=== PATIENT | female | born 1980 | race Hispanic/Latino ===

== ENCOUNTER 2021-04-04 19:49 | Emergency (ER) | payer SELFPAY ==
[~2021-04-04] VITALS: Ht 167.6 cm; Wt 109.8 kg
[2021-04-04] MEDS ORDERED: 0.9%NACL 1000ML 1,000 ML IV ONE (20:28)
[2021-04-04] MEDS ORDERED: CLINDAMYCIN IVPB 600MG/50ML 50 ML IV SCH (20:30)
[2021-04-04] MEDS ORDERED: HYDROCODONE/ACETAMINOPHEN 10/325 MG TAB PO ONE (20:30)
[2021-04-04] MEDS ORDERED: INSULIN HUMULIN R 100 UNIT/ML 3ML SQ ONE (20:30)
[2021-04-04 20:46] LABS: BASOPHILS % (AUTO) 0.3 % (0.0-5.0); HEMATOCRIT 43.2 % (36-48); LYMPHOCYTES % (AUTO) 24.5 % (21.0-51.0); MEAN CORPUSCULAR HEMOGLOBIN 26.5 pg (27.0-33.0); MEAN CORPUSCULAR HGB CONC 33.3 g/dL (32.0-36.0); MEAN CORPUSCULAR VOLUME 79.6 fL (79-99); MONOCYTES % (AUTO) 5.1 % (3.0-13.0); NEUTROPHILS % (AUTO) 68.4 % (40.0-77.0); PLATELET COUNT (AUTO) 260 K/uL (130-400); RED BLOOD CELL COUNT(AUTO) 5.43 MIL/uL (4.00-5.50); RED CELL DISTRIBUTION WIDTH 12.4 % (11.0-15.5); WHITE BLOOD COUNT (AUTO) 9.7 K/uL (4.8-10.8)
[2021-04-04 20:56] LABS: CREATININE 0.7 mg/dL (0.5-1.5); POTASSIUM 3.9 mmol/L (3.5-5.1)
[2021-04-04 21:00] LABS: ALBUMIN 3.6 g/dL (3.5-5.0); BILIRUBIN,TOTAL 0.3 mg/dL (0.2-1.0); TOTAL PROTEIN, SERUM 7.4 g/dL (6.0-8.3)
[2021-04-04] MEDS ORDERED: ACET-2247 PO (21:41)
[2021-04-04] MEDS ORDERED: CLIN-141 PO (21:41)
[2021-04-04 22:14] VITALS: BP 132/89
== END 2021-04-04 22:26 | disposition home or self-care (01) ==
LOC: EDH 19:49
DX: L02.411 Cutaneous abscess of right axilla (principal); E11.65 Type 2 diabetes mellitus with hyperglycemia; E66.9 Obesity, unspecified; Z68.39 Body mass index [BMI] 39.0-39.9, adult; Z79.4 Long term (current) use of insulin
CPT/HCPCS: 36415; 80053; 82948 ×2; 85025; 96365; 96372; 99284; J1815; J3490; J7030

== ENCOUNTER 2022-04-14 12:07 | Emergency (ER) | payer OTHER ==
[~2022-04-14] VITALS: Ht 170.2 cm; Wt 97.1 kg
[~2022-04-14 12:07] MED LIST: ACET-2247 PO; CLIN-141 PO
[2022-04-14 16:22] VITALS: BP 160/102
== END 2022-04-14 16:23 | disposition home or self-care (01) ==
LOC: EDH 12:07
DX: B34.9 Viral infection, unspecified (principal); Z20.822 Contact with and (suspected) exposure to COVID-19; E11.9 Type 2 diabetes mellitus without complications; E78.00 Pure hypercholesterolemia, unspecified; I10 Essential (primary) hypertension; Z98.890 Other specified postprocedural states
CPT/HCPCS: 99284; 71045; 87635; 87880; 87804 ×2; C9803; 87420

== ENCOUNTER 2024-12-13 09:21 | Emergency (ER) | payer BC ==
[~2024-12-13] VITALS: Ht 167.6 cm; Wt 101.6 kg
[2024-12-13 10:07] LABS: APPEARANCE,URINE CLOUDY (CLEAR); GLUCOSE, URINE (UA) >=1000 mg/dL (NEGATIVE); LEUKOCYTE ESTERASE ,URINE 500 Leu/uL (NEGATIVE); NITRATE,URINE NEGATIVE (NEGATIVE); OCCULT BLOOD,URINE NEGATIVE (NEGATIVE)
[2024-12-13 10:08] LABS: ADD UA MICROSCOPIC YES
[2024-12-13 10:11] LABS: NON-SQUAMOUS EPITHELIAL CELL 2 /HPF (0-2); SQUAMOUS EPITHELIAL CELL,UR MANY /HPF (0-2)
[2024-12-13 10:16] LABS: HCG,QUALITATIVE URINE NEGATIVE (NEGATIVE)
[2024-12-13 11:16] LABS: IMMATURE GRANULOCYTE ABSOLUTE 0.04 K/uL (0-1); NUCLEATED RED BLOOD CELLS 0.0 % (0.0-0.19); PLATELET COUNT (AUTO) 279 K/uL (130-400); RED BLOOD CELL COUNT(AUTO) 5.79 MIL/uL (4.00-5.50); RED CELL DISTRIBUTION WIDTH 12.3 % (11.0-15.5); WHITE BLOOD COUNT (AUTO) 8.8 K/uL (4.8-10.8)
[2024-12-13 11:41] LABS: ASPARTATE AMINOTRANSFERASE 11.0 U/L (10-37); CREATININE 0.6 mg/dL (0.5-1.0); GLOMERULAR FILTR. RATE CALC 114.0 mL/min (>90); GLUCOSE,RANDOM 282.0 mg/dL (70-105); TOTAL PROTEIN, SERUM 7.1 g/dL (6.0-8.3); UREA NITROGEN, BLOOD 17.0 mg/dL (7-18)
[2024-12-13 11:52] LABS: SODIUM SERUM 139.0 mmol/L (136-145)
--- NOTE | 2024-12-13 11:53 | ERN ---
General Chief Complaint: Abdominal Pain Stated Complaint: ABD PAIN Time Seen by MD: 10:10 Time Seen by Midlevel: 10:10 Source: patient History of Present Illness Initial Comments Patient is a 44-year-old female with a past medical history of type 2 diabetes, hyperlipidemia, and hypertension presenting to the emergency department for evaluation of diffuse abdominal pain with associated nausea started at a proximally 8:00 a.m. today. Allergies: Coded Allergies: No Known Drug Allergies (Unverified Allergy, Unknown, 04/04/21) Home Meds Active Scripts Cephalexin Monohydrate (Keflex) 500 Mg Cap, 500 MG PO TID for 7 Days, #21 CAP Prov:MEY ZAIDI DISABILITY MANAGER 8 Ondansetron (Ondansetron Odt) 4 Mg Tab.rapdis, 4 MG PO Q6HPRN PRN for nausea, #16 TAB 0 Refills Prov:MEY ZAIDI DISABILITY MANAGER 12/13/24 Dicyclomine HCl (Bentyl) 20 Mg Tab, 1 TAB PO TID for irritable bowel symptoms for 7 Days, #21 TAB 0 Refills Prov:MEY ZAIDI DISABILITY MANAGER 12/13/24 Acetaminophen (Tylenol) 325 Mg Tablet, 650 MG PO Q4HPRN, #50 TAB Prov:CATIA RAHMAN 04/04/21 Clindamycin HCl (Clindamycin HCl) 300 Mg Capsule, 1 CAP PO QID for 10 Days, #40 CAP 0 Refills Prov:CATIA RAHMAN 04/04/21 Past Medical History Past Medical History: Diabetes-Type II, High Cholesterol, Hypertension Past Surgical History: Cholecystectomy, Surgical History Other: OVARY REMOVED Social History Social History: Negative ROS Dictation CONSTITUTIONAL: Negative except for HPI HEAD/FACE: Negative except for HPI EENT: Negative except for HPI RESPIRATORY: Negative except for HPI GASTROINTESTINAL/ABDOMINAL: Negative except for HPI GENITOURINARY: Negative except for HPI MUSCULOSKELETAL: Negative except for HPI INTEGUMENTARY: Negative except for HPI NEUROLOGICAL/PSYCH: Negative except for HPI HEMATOLOGIC/LYMPHATIC: Negative except for HPI All Systems Negative, Except as noted above. 13 point review of systems assessed and all negative except for above. Physical Exam Physical Exam Dictation Vital Signs reviewed General Appearance: Alert, oriented x 3, no acute distress, well developed, nourished. Head and Face: non-traumatic. Eyes: PERRL, pink conjunctivas, eyelid no trauma, anterior chamber with arcus senilis. Ears: Pinnas intact and no signs of trauma or erythema ear canals clear and no discharge TM no erythema Nose: No discharge, no bleeding. Oropharynx: Mouth normal, tongue pink, pharynx clear,no erythema, tonsils no exudates, no abscesses noted, mucous membrane moist Neck: Supple, non-tender, no thyromegaly, no masses, no JVD, no bruits Breast:Deferred Chest:No tenderness, no crepitus, no paradoxical movement, no retractions Lungs:Clear, well-ventilated, symmetric, no rales, no wheezing, no rhonchi, no stridor, good breath sounds bilaterally Heart: Regular rate, regular rhythm, no murmur, no gallops Vascular: no peripheral edema, Abdomen: Soft, positive bowel sounds, nondistended, no guarding, nontender, no rebound, no masses no hepatomegaly, no splenomegaly, no Denson's sign, no hernias. Rectal: Deferred Genital: Deferred Neurological: Normal speech, motor function intact, sensory function intact Musculoskeletal: Neck nontender, full range of motion, back nontender, full range of motion, Extremities: nontender, full range of motion Skin: Color pink, dry, no turgor, no rash, no lacerations, no abrasions, no contusions. Lymphatic: Deferred Results Laboratory and Microbiology Lab and Micro Result Laboratory Tests Test 12/13/24 09:47 12/13/24 10:55 Urine Color YELLOW (YELLOW) Urine Appearance CLOUDY (CLEAR) H Urine pH 5.5 (5.0-8.0) Urine Specific [place] 1.028 (1.001-1.031) Urine Protein 10 mg/dL (NEGATIVE) H Urine Glucose (UA) >=1000 mg/dL (NEGATIVE) H Urine Ketones NEGATIVE mg/dL (NEGATIVE) Urine Occult Blood NEGATIVE (NEGATIVE) Urine Nitrate NEGATIVE (NEGATIVE) Urine Bilirubin NEGATIVE mg/dL (NEGATIVE) Urine Urobilinogen 0.2 mg/dL (0.2-1.0) Urine Leukocyte Esterase 500 Sally/uL (NEGATIVE) H Urine RBC 6-10 /HPF (0-1) H Urine WBC TNTC /HPF (0-1) H Urine Squamous Epithelial Cells MANY /HPF (0-2) Urine Non-Squamous Epithelial Cells 2 /HPF (0-2) Urine Bacteria FEW /HPF (None Seen) Urine HCG, Qualitative NEGATIVE (NEGATIVE) White Blood Count 8.8 K/uL (4.8-10.8) Red Blood Count 5.79 MIL/uL (4.00-5.50) H Hemoglobin 15.5 g/dL (12.0-16.0) Hematocrit 45.6 % (36-48) Mean Corpuscular Volume 78.8 fL (79-99) L Mean Corpuscular Hemoglobin 26.8 pg (27.0-33.0) L Mean Corpuscular Hemoglobin Concent 34.0 g/dL (32.0-36.0) Red Cell Distribution Width 12.3 % (11.0-15.5) Platelet Count 279 K/uL (130-400) Mean Platelet Volume 9.9 fL (7.5-10.5) Immature Granulocyte % (Auto) 0.5 % (0-1) Neutrophils (%) (Auto) 68.9 % (40.0-77.0) Lymphocytes (%) (Auto) 23.5 % (21.0-51.0) Monocytes (%) (Auto) 5.9 % (3.0-13.0) Eosinophils (%) (Auto) 0.9 % (0.0-8.0) Basophils (%) (Auto) 0.3 % (0.0-5.0) Neutrophils # (Auto) 6.1 K/uL (1.8-7.7) Lymphocytes # (Auto) 2.1 K/uL (1.0-4.8) Monocytes # (Auto) 0.5 K/uL (0.1-1.0) Eosinophils # (Auto) 0.08 K/uL (0.00-0.70) Basophils # (Auto) 0.03 K/uL (0.00-0.20) Absolute Immature Granulocyte (auto 0.04 K/uL (0-1) Nucleated Red Blood Cells 0.0 % (0.0-0.19) Sodium Level 139 mmol/L (136-145) Potassium Level 4.0 mmol/L (3.5-5.1) Chloride Level 102 mmol/L (101-111) Carbon Dioxide Level 20 mmol/L (21-32) L Blood Urea Nitrogen 17 mg/dL (7-18) Creatinine 0.6 mg/dL (0.5-1.0) Glomerular Filtration Rate Calc 114 mL/min (>90) Random Glucose 282 mg/dL (70-105) H Total Calcium 8.6 mg/dL (8.5-10.1) Total Bilirubin 0.5 mg/dL (0.2-1.0) Direct Bilirubin 0.1 mg/dL (0.0-0.3) Aspartate Amino Transf (AST/SGOT) 11 U/L (10-37) Alanine Aminotransferase (ALT/SGPT) 26 U/L (12-78) Alkaline Phosphatase 115 U/L (50-136) Total Protein 7.1 g/dL (6.0-8.3) Albumin 3.7 g/dL (3.5-5.0) Lipase 103 U/L (16-77) H Labs Reviewed?: Yes EKG/XRAY/US/CT/MRI CT Scan Comment CT abdomen/pelvis with no radiological evidence of acute pancreatitis. MDM MDM: Differential diagnosis: Acute abdominal pain, acute pancreatitis, small bowel obstruction. Rationale: Tests considered and ordered secondary to shared decision making include: Previous outside records reviewed: Old ER visits. Risk of complication and/or morbidity or mortality of patient management: None Medications-Per medication reconciliation Need for hospitalization: Patient does not meet criteria for hospitalization. Need for emergency major/minor surgery: No There are no social concerns with this patient. Prescription drug management Prescriptions will include symptomatic care Patient's prior external medical records from other ER visits were reviewed by me as indicated. Prior testing and results from previous visits were reviewed. Prior tests were taken into account with medical decision making and resource utilization, independent historian/historians were used to obtain complete medical history. I independently interpreted the test that were performed, results were reviewed by me and considered findings on radiology if ordered. Medical management and examination interpretation discussions were had by me with other qualified healthcare professionals as indicated for the patient's care. ED Course Orders Procedure Category Date Status Time Urinalysis Profile LAB 12/13/24 Complete 09:39 ,Urine Test LAB 12/13/24 Complete 09:39 Culture Urine CAMILO 12/13/24 In Process 10:08 Cbc With Differential LAB 12/13/24 Complete 10:10 Basic Metabolic Panel LAB 12/13/24 Complete 10:10 Hepatic Function Panel LAB 12/13/24 Complete 10:10 Lipase LAB 12/13/24 Complete 10:10 Ceftriaxone 1g Vial PHA 12/13/24 Complete (Rocephine 1g Inj) 11:30 Ondansetron 4mg Inj PHA 12/13/24 Complete (Zofran 4mg Inj) 12:30 Famotidine 20mg Vial PHA 12/13/24 Complete (Pepcid 20mg Vial) 12:30 Ketorolac PHA 12/13/24 Complete Tromethamine 15mg/Ml 12:30 0.9%Nacl 1000ml (Ns PHA 12/13/24 Complete 1000ml) 12:30 Ct Abdomen/Pelvis W/O CT 12/13/24 Resulted Contrast 12:04 Ceftriaxone 1g Vial PHA 12/13/24 Complete (Rocephine 1g Inj) 12:30 Current Medications Medications (Trade) Dose Ordered Sig/Ani Route PRN Reason Start Time Stop Time Status Last Admin Dose Admin Ceftriaxone Sodium (ROCEphine 1G INJ) 1 gm ONCE ONCE IM 12/13/24 11:30 12/13/24 11:31 DC 12/13/24 13:06 Ceftriaxone Sodium (ROCEphine 1G INJ) 1 gm ONCE ONCE IVPB 12/13/24 12:30 12/13/24 12:31 DC Famotidine (Pepcid 20mg Vial) 20 mg ONCE ONCE IV 12/13/24 12:30 12/13/24 12:31 DC 12/13/24 13:06 Ketorolac Tromethamine (toRADol) 15 mg ONCE ONCE IV 12/13/24 12:30 12/13/24 12:31 DC 12/13/24 13:06 Ondansetron HCl (zoFRAN 4MG INJ) 4 mg ONCE ONCE IVP 12/13/24 12:30 12/13/24 12:31 DC 12/13/24 13:06 Sodium Chloride 1,000 ml @ 0 mls/hr ONCE ONCE IV 12/13/24 12:30 12/13/24 12:31 DC 12/13/24 13:06 Vital Signs Date Time Temp Pulse Resp B/P (MAP) Pulse Ox O2 Delivery O2 Flow Rate FiO2 12/13/24 16:22 98.6 80 16 132/64 96 Room Air* 0 21 12/13/24 13:01 98.6 84 16 138/88 96 Room Air* 0 21 8/4/25 09:27 98.6 88 16 143/92 96 Room Air* 0 12/13/24 09:23 98.6 88 16 143/92 96 Room Air 0 DX & DISP Disposition: Discharge Departure Impression: Primary Impression: Acute abdominal pain Additional Impressions: Elevated lipase, Acute UTI Condition: Stable Scripts Cephalexin Monohydrate (Keflex) 500 Mg Cap 500 MG PO TID for 7 Days, #21 CAP Prov: MEY ZAIDI 12/13/24 Ondansetron (Ondansetron Odt) 4 Mg Tab.rapdis 4 MG PO Q6HPRN PRN for nausea, #16 TAB 0 Refills Prov: MEY ZAIDI 12/13/24 Dicyclomine HCl (Bentyl) 20 Mg Tab 1 TAB PO TID for irritable bowel symptoms for 7 Days, #21 TAB 0 Refills Prov: MEY ZAIDI 12/13/24 Referrals: CONCHIS GAYTAN (PCP) Time of Disposition: 15:38 ROGELIO WARE Dec 13, 2024 11:53 MEY ZAIDI Dec 13, 2024 15:28
[2024-12-13] MEDS: 0.9%NACL 1000ML 1,000 ML IV ONE (13:06)
[2024-12-13] MEDS: FAMOTIDINE 20MG VIAL IV ONE (13:06)
--- NOTE | 2024-12-13 14:08 | HMCIMG ---
EXAM: CT Abdomen and Pelvis Without IV contrast CLINICAL HISTORY: diffused abd pain TECHNIQUE: Axial computed tomography images of the abdomen and pelvis without intravenous contrast. CONTRAST: No IV contrast. COMPARISON: None provided. FINDINGS: LUNG BASES: The lung bases appear clear. No pleural effusions are seen. LIVER: The liver is enlarged in size. The right hepatic lobe measures up to 16.8 cm. A few hepatic cysts in both lobes of the liver largest measuring 1.2 cm in the left lobe. GALLBLADDER AND BILE DUCTS: Post cholecystectomy status. No biliary ductal dilatation is evident. PANCREAS: Unremarkable. SPLEEN: The spleen is enlarged measures 13.8 cm. Splenunculus measuring 1.4 cm at the splenic hilum. ADRENAL GLANDS: Unremarkable. KIDNEYS, URETERS, AND BLADDER: The kidneys appear within normal limits. There is no hydronephrosis or hydroureter. No urinary calculi are seen. STOMACH AND BOWEL: Unremarkable appearance of the stomach and bowel. No evidence of bowel obstruction. No evidence suggesting enteritis or colitis. APPENDIX: No evidence of acute appendicitis on CT examination. PERITONEUM: No free fluid. No free air. LYMPH NODES: No lymphadenopathy is evident. REPRODUCTIVE: Left oopherectomy status. VASCULATURE: No evidence of abdominal aortic aneurysm. BONES: Degenerative changes in the visualised spine in the form of marginal osteophytes and degenerative discs at multiple lumbar levels. No aggressive appearing osseous lesion. No acute osseous pathology is evident. IMPRESSION: 1. No acute intraabdominal or pelvic pathology. 2. Hepatomegaly with right lobe measuring up to 16.8 cm. 3. Splenomegaly measuring 13.8 cm. /[place]
[2024-12-13] MEDS ORDERED: ONDA-243 PO (15:37)
[2024-12-13] MEDS ORDERED: DICY20TA2 PO (15:37)
[2024-12-13] MEDS ORDERED: CEPH500B PO (15:41)
[2024-12-13 16:22] VITALS: BP 132/64; PULSE 80; RESP 16; TEMP 98.6; O2SAT 96
== END 2024-12-13 16:24 | disposition home or self-care (01) ==
LOC: EDH 09:21
DX: R10.84 Generalized abdominal pain (principal); R74.8 Abnormal levels of other serum enzymes; N39.0 Urinary tract infection, site not specified; E11.9 Type 2 diabetes mellitus without complications; E78.00 Pure hypercholesterolemia, unspecified; I10 Essential (primary) hypertension; Z90.49 Acquired absence of other specified parts of digestive tract; Z90.721 Acquired absence of ovaries, unilateral
CPT/HCPCS: 36415; 74176; 80048; 80076; 81001; 81025; 83690; 85025; 87086; 96372; 96374; 96375; 99284; 99285; J0696; J1885; J2405; J3490; J7030

== ENCOUNTER 2024-12-23 11:15 | Emergency (ER) | payer BC ==
[~2024-12-23] VITALS: Ht 167.6 cm; Wt 101.6 kg
[~2024-12-23 11:15] MED LIST changes: +CEPH500B PO; +DICY20TA2 PO; +ONDA-243 PO
--- NOTE | 2024-12-23 11:27 | ERN ---
ED Note History of Present Illness Stated Complaint: CP Chief Complaint: Chest Pain Time Seen by MD: 11:18 Dictation: PATIENT IS A 44-YEAR-OLD FEMALE COMING IN TODAY WITH COMPLAINTS OF SUBSTERNAL CHEST PAIN WITH A EPIGASTRIC PAIN BURNING ONSET YESTERDAY. SHE SAID SHE HAD B EEN NAUSEA WITHOUT VOMITING NO BACK PAIN NO JAW PAIN NO ARM PAIN. STATES SHE DOES HAVE A HISTORY OF GASTRITIS AND WAS TREATED HERE FOR THE SAME COMPLAINT APPROXIMATELY 10 DAYS AGO. SHE STATES WHEN SHE TRIES TO EAT SINCE THE LAST 24 HOURS, SHE SAID SHE GETS VERY NAUSEATED. SHE STATES SHE HAS BEEN COMPLIANT WITH THE MEDICATIONS AT [facility] PRESCRIBED HOWEVER SHE HAS NOT BEEN TO SEE HER DOCTOR AT THE DAY AND NIGHT CLINIC SINCE THE ONSET. SHE DOES TAKE MED JAR 0 FOR DIABETES Allergies: Coded Allergies: No Known Drug Allergies (Unverified Allergy, Unknown, 04/04/21) Sulfa (Sulfonamide Antibiotics) (Unverified Allergy, Unknown, 12/23/24) Home Meds Active Scripts Cephalexin Monohydrate (Keflex) 500 Mg Cap, 500 MG PO TID for 7 Days, #21 CAP Prov:MEY ZAIDI 12/13/24 Ondansetron (Ondansetron Odt) 4 Mg Tab.rapdis, 4 MG PO Q6HPRN PRN for nausea, #16 TAB 0 Refills Prov:MEY ZAIDI 12/13/24 Dicyclomine HCl (Bentyl) 20 Mg Tab, 1 TAB PO TID for irritable bowel symptoms for 7 Days, #21 TAB 0 Refills Prov:MEY ZAIDI 12/13/24 Acetaminophen (Tylenol) 325 Mg Tablet, 650 MG PO Q4HPRN, #50 TAB Prov:CATIA RAHMAN 04/04/21 Clindamycin HCl (Clindamycin HCl) 300 Mg Capsule, 1 CAP PO QID for 10 Days, #40 CAP 0 Refills Prov:CATIA RAHMAN 04/04/21 Past Medical History Past Medical History: Diabetes-Type II, High Cholesterol Surgical History: Cholecystectomy, Surgical History Other: OVARY REMOVED Social History: Negative History: Not Applicable RN Note Reviewed/Agreed w/PFSH: Yes Review of System Dictation CONSTITUTIONAL: NEGATIVE EXCEPT FOR HPI HEAD/FACE: NEGATIVE EXCEPT FOR HPI EENT: NEGATIVE EXCEPT FOR HPI RESPIRATORY: NEGATIVE EXCEPT FOR HPI CENTRAL CHEST PAIN GASTROINTESTINAL/ABDOMINAL: NEGATIVE EXCEPT FOR HPI EPIGASTRIC PAIN WITH BURNING/NAUSEA GENITOURINARY: NEGATIVE EXCEPT FOR HPI MUSCULOSKELETAL: NEGATIVE EXCEPT FOR HPI INTEGUMENTARY: NEGATIVE EXCEPT FOR HPI NEUROLOGICAL/PSYCH: NEGATIVE EXCEPT FOR HPI HEMATOLOGIC/LYMPHATIC: NEGATIVE EXCEPT FOR HPI ALL SYSTEMS NEGATIVE, EXCEPT NOTED ABOVE. 13 POINT REVIEW OF SYSTEMS ASSESSED AND ALL NEGATIVE EXCEPT FOR ABOVE. Initial Vital Sign VS Vital Signs Date Time Temp Pulse Resp B/P (MAP) Pulse Ox O2 Delivery O2 Flow Rate FiO2 12/23/24 11:16 98.1 112 18 97 Room Air 12/23/24 11:20 176/103 0 21 Physical Exam Dictation VITAL SIGNS REVIEWED GENERAL APPEARANCE: ALERT, ORIENTED X 3, MODERATE ACUTE DISTRESS, WELL DEVELOPED, NOURISHED. OBESE HEAD AND FACE: NON-TRAUMATIC. EYES: PERRL, PINK CONJUNCTIVAS, EYELID NO TRAUMA, ANTERIOR CHAMBER WITH ARCUS SENILIS. EARS: PINNAS INTACT AND NO SIGNS OF TRAUMA OR ERYTHEMA EAR CANALS CLEAR AND NO DISCHARGE TM NO ERYTHEMA NOSE: NO DISCHARGE, NO BLEEDING. OROPHARYNX: MOUTH NORMAL, TONGUE PINK, PHARYNX CLEAR,NO ERYTHEMA, TONSILS NO EXUDATES, NO ABSCESSES NOTED, MUCOUS MEMBRANE MOIST NECK: SUPPLE, NON-TENDER, NO THYROMEGALY, NO MASSES, NO JVD, NO BRUITS BREAST:DEFERRED CHEST:NO TENDERNESS, NO CREPITUS, NO PARADOXICAL MOVEMENT, NO RETRACTIONS LUNGS:CLEAR, WELL-VENTILATED, SYMMETRIC, NO RALES, NO WHEEZING, NO RHONCHI, NO STRIDOR, GOOD BREATH SOUNDS BILATERALLY HEART: REGULAR RATE, REGULAR RHYTHM, NO MURMUR, NO GALLOPS VASCULAR: NO PERIPHERAL EDEMA, ABDOMEN: SOFT, POSITIVE BOWEL SOUNDS, NONDISTENDED, NO GUARDING, EPIGASTRIC TENDERNESS WITH PALPATION, NO REBOUND, NO MASSES NO HEPATOMEGALY, NO SPLENOMEGALY, NO MARTIN'S SIGN, NO HERNIAS. RECTAL: DEFERRED GENITAL: DEFERRED NEUROLOGICAL: NORMAL SPEECH, MOTOR FUNCTION INTACT, SENSORY FUNCTION INTACT MUSCULOSKELETAL: NECK NONTENDER, FULL RANGE OF MOTION, BACK NONTENDER, FULL RANGE OF MOTION, EXTREMITIES: NONTENDER, FULL RANGE OF MOTION SKIN: COLOR PINK, DRY, NO TURGOR, NO RASH, NO LACERATIONS, NO ABRASIONS, NO CONTUSIONS. LYMPHATIC: DEFERRED Results (Laboratory/Radiology) Laboratory/Radiology Laboratory Tests Test 12/23/24 11:56 White Blood Count 10.2 K/uL (4.8-10.8) Red Blood Count 5.98 MIL/uL (4.00-5.50) H Hemoglobin 16.0 g/dL (12.0-16.0) Hematocrit 46.7 % (36-48) Mean Corpuscular Volume 78.1 fL (79-99) L Mean Corpuscular Hemoglobin 26.8 pg (27.0-33.0) L Mean Corpuscular Hemoglobin Concent 34.3 g/dL (32.0-36.0) Red Cell Distribution Width 12.2 % (11.0-15.5) Platelet Count 291 K/uL (130-400) Mean Platelet Volume 9.6 fL (7.5-10.5) Immature Granulocyte % (Auto) 0.2 % (0-1) Neutrophils (%) (Auto) 71.5 % (40.0-77.0) Lymphocytes (%) (Auto) 21.7 % (21.0-51.0) Monocytes (%) (Auto) 5.7 % (3.0-13.0) Eosinophils (%) (Auto) 0.6 % (0.0-8.0) Basophils (%) (Auto) 0.3 % (0.0-5.0) Neutrophils # (Auto) 7.3 K/uL (1.8-7.7) Lymphocytes # (Auto) 2.2 K/uL (1.0-4.8) Monocytes # (Auto) 0.6 K/uL (0.1-1.0) Eosinophils # (Auto) 0.06 K/uL (0.00-0.70) Basophils # (Auto) 0.03 K/uL (0.00-0.20) Absolute Immature Granulocyte (auto 0.02 K/uL (0-1) Nucleated Red Blood Cells 0.0 % (0.0-0.19) Sodium Level 139 mmol/L (136-145) Potassium Level 3.9 mmol/L (3.5-5.1) Chloride Level 103 mmol/L (101-111) Carbon Dioxide Level 26 mmol/L (21-32) Blood Urea Nitrogen 12 mg/dL (7-18) Creatinine 0.7 mg/dL (0.5-1.0) Glomerular Filtration Rate Calc 110 mL/min (>90) Random Glucose 205 mg/dL (70-105) H Total Calcium 9.0 mg/dL (8.5-10.1) Troponin I High Sensitivity < 4 ng/L (4-50) L Lipase 99 U/L (16-77) H Accession No. [id number] Creator Patient Name/ID EMELIA DURAN / [id number] Dictator Study Date 2024-12-23 11:29:09 Instructional Manager Sex / Age F / 44Y Team Assembly Line Machine Operator ZIA LOGAN Patient [address] [facility] Other My Comment(s) Study Comments [facility] [address] [place] [address] IMAGING REPORT Signed PATIENT: ROGER KAPOOR MR#: [id number] : 1980 SEX: F AGE: 44 LOCATION: [facility] ORDER [id number] STATUS: REG ER REPORT#: [id number] SERVICE 1124 REASON: CHEST PAIN ORDERING PHYSICIAN: ANGELINA GREGORY NP PROCEDURE: CXR1VW - CHEST 1VW EXAM: CR Chest, 1 View. CLINICAL HISTORY: CHEST PAIN COMPARISON: 04/14/2022 chest single view FINDINGS: Stable electronic device projects over the left heart border. LUNGS: There is no mass, infiltrate, or acute pulmonary abnormality. PLEURAL SPACES: No pleural effusion or pneumothorax. MEDIASTINUM: The cardiomediastinal silhouette is within normal limits. BONES: No aggressive appearing osseous lesion seen. IMPRESSION: No acute cardiopulmonary pathology is evident. /[place] Labs Reviewed?: Yes EKG Comment: EKG SINUS TACHYCARDIA/HEART RATE 109/AXIS NORMAL/NO ECTOPY ED Course ED Course Orders Procedure Category Date Status Time Cbc With Differential LAB 12/23/24 Complete 11:24 Troponin I High LAB 12/23/24 Complete Sensitivity 11:24 12 Lead Ekg Tracing- EKG 12/23/24 Complete Technical 11:24 0.9%Nacl 1000ml (Ns PHA 12/23/24 Complete 1000ml) 11:30 Ondansetron 4mg Inj PHA 12/23/24 Complete (Zofran 4mg Inj) 11:30 Chest 1vw RAD 12/23/24 Resulted 11:24 Lipase LAB 12/23/24 Complete 11:24 Basic Metabolic Panel LAB 12/23/24 Complete 11:24 Famotidine 20mg Tab PHA 12/23/24 Complete (Pepcid 20mg Tab) 11:30 Lidocaine Hcl 2% PHA 12/23/24 Complete Viscous (Lidocaine Hcl 12:30 Mag/Alum/Simeth 30ml PHA 12/23/24 Complete (Maalox Plus 30ml) 12:30 Dicyclomine Hcl PHA 12/23/24 Complete (Bentyl 10mg/5ml 12:30 Current Medications Medications (Trade) Dose Ordered Sig/Ani Route PRN Reason Start Time Stop Time Status Last Admin Dose Admin Al Hydroxide/Mg Hydroxide (MAALox PLUS 30ML) 30 ml ONCE ONCE PO 12/23/24 12:30 12/23/24 12:31 DC Dicyclomine HCl (Bentyl 10mg/5ml Syrup) 10 mg ONCE ONCE PO 12/23/24 12:30 12/23/24 12:31 DC Famotidine (Pepcid 20mg Tab) 20 mg ONCE ONCE PO 12/23/24 11:30 12/23/24 11:31 DC 12/23/24 12:07 Lidocaine HCl (Lidocaine HCl 2% Viscous) 10 ml ONCE ONCE PO 12/23/24 12:30 12/23/24 12:31 DC Ondansetron HCl (zoFRAN 4MG INJ) 4 mg ONCE ONCE IVP 12/23/24 11:30 12/23/24 11:31 DC 12/23/24 12:07 Sodium Chloride 1,000 ml @ 0 mls/hr ONCE ONCE IV 12/23/24 11:30 12/23/24 11:31 DC 12/23/24 12:08 Vital Signs Date Time Temp Pulse Resp B/P (MAP) Pulse Ox O2 Delivery O2 Flow Rate FiO2 12/23/24 12:22 99.7 108 18 145/99 99 Room Air* 0 21 12/23/24 11:20 98.1 112 18 176/103 97 Room Air* 0 12/23/24 11:16 98.1 112 18 97 Room Air HEART Score Response (Comments) Value History: Low suspicion (0) 0 Age: < 45yrs (0) 0 Risk Factors: 1-2 risk factors (+1) 1 Initial Troponin: Normal limit (0) 0 Total 1 Medical Decision Making MDM MDM: DIFFERENTIAL DIAGNOSIS: ACS/AMI/ELECTROLYTE IMBALANCE/DEHYDRATION/GASTRITIS/PANCREATITIS/ANXIETY RATIONALE: TESTS CONSIDERED AND ORDERED SECONDARY TO SHARED DECISION MAKING INCLUDE: LABS/EKG/CHEST X-RAY PREVIOUS OUTSIDE RECORDS REVIEWED: OLD ER VISITS. RISK OF COMPLICATION AND/OR MORBIDITY OR MORTALITY OF PATIENT MANAGEMENT: NONE MEDICATIONS-PER MEDICATION RECONCILIATION NEED FOR HOSPITALIZATION: PATIENT DOES NOT MEET CRITERIA FOR HOSPITALIZATION. NEED FOR EMERGENCY MAJOR/MINOR SURGERY: NO THERE ARE NO SOCIAL CONCERNS WITH THIS PATIENT. PRESCRIPTION DRUG MANAGEMENT CARAFATE/OMEPRAZOLE PRESCRIPTIONS WILL INCLUDE SYMPTOMATIC CARE PATIENT'S PRIOR EXTERNAL MEDICAL RECORDS FROM OTHER ER VISITS WERE REVIEWED BY ME INDICATED. PRIOR TESTING AND RESULTS FROM PREVIOUS VISITS WERE REVIEWED. PRIOR TESTS WERE TAKEN INTO ACCOUNT WITH MEDICAL DECISION MAKING AND RESOURCE UTILIZATION, INDEPENDENT HISTORIAN/HISTORIANS WERE USED TO OBTAIN COMPLETE MEDICAL HISTORY. I INDEPENDENTLY INTERPRETED THE TEST THAT WERE PERFORMED, RESULTS WERE REVIEWED BY ME AND CONSIDERED FINDINGS ON RADIOLOGY IF ORDERED. MEDICAL MANAGEMENT AND EXAMINATION INTERPRETATION DISCUSSIONS WERE HAD BY ME WITH OTHER QUALIFIED HEALTHCARE PROFESSIONALS INDICATED FOR THE PATIENT'S CARE. DX & DISP Disposition: Discharge Departure Impression: Primary Impression: Acute gastritis Additional Impressions: Elevated lipase, Uncontrolled diabetes mellitus Condition: Stable Scripts Omeprazole (Omeprazole) 40 Mg Capsule. 1 CAP PO DAILY for 30 Days, #30 CAP 0 Refills Prov: ANGELINA GREGORY NP 12/23/24 Sucralfate (Carafate) 1 Gram Tablet 1 GM PO ACHS for 10 Days, #40 TAB Prov: ANGELINA GREGORY VEHICLE DAMAGE APPRAISER 12/23/24 Additional Instructions: FOLLOW-UP WITH PRIMARY CARE PROVIDER IN 1 TO 2 DAYS. TAKE MEDICATIONS DIRECTED HERE IN THE EMERGENCY ROOM. OKAY TO CONTINUE HOME MEDICATIONS UNLESS OTHERWISE DISCUSSED DURING YOUR VISIT IN THE EMERGENCY ROOM TODAY. RETURN TO YOUR NEAREST EMERGENCY ROOM IF SYMPTOMS WORSEN OR IF THERE IS NO IMPROVEMENT. CALL 911 IF YOU NEED IMMEDIATE ASSISTANCE. TAKE TYLENOL OR MOTRIN OVER-THE- COUNTER NEEDED AND IF NO CONTRAINDICATIONS ARE PRESENT. INCREASE ORAL HYDRATION. A WOUND CULTURE OR URINE CULTURE WAS ORDERED HERE IN THE EMERGENCY ROOM DEPARTMENT PLEASE FOLLOW-UP WITH PRIMARY CARE PROVIDER AND ADVISE THEM TO GET REPEAT PORTS FROM OUR FACILITY. IF YOU HAD ANY ADORE WRAP/SPLINTS THAT WERE APPLIED HERE, PLEASE DO NOT REMOVE THEM UNTIL YOU SEE YOUR PRIMARY CARE OR SPECIALTY. TAKE OMEPRAZOLE AND CARAFATE DIRECTED. FOLLOW A BLAND DIET WITH WATER FOR FLUIDS ONLY. NO COFFEE, NO TEA, NO ICE TEA, NO SPICY FOODS, NO CITRUS FRUIT JUICE, NO ALCOHOL UNTIL CLEARED BY YOUR DOCTOR. CALL HYDROELECTRIC STATION CHIEF FOR APPOINTMENT IN THE NEXT ONE TWO DAYS NEEDED Referrals: CONCHIS GAYTAN (PCP) ESTHELA BLACK MD Time of Disposition: 13:03 I have reviewed the case, and I agree with, Diagnosis and Plan ANGELINA GREGORY NP Dec 23, 2024 11:27
--- NOTE | 2024-12-23 11:48 | EKG ---
[facility] Test Date: 2024-12-23 Test Time: 11:43:46 Pat Name: ROGER KAPOOR Department: ED Room: Gender: F Consultant Intern: [id number] : 1980 Requested By: ANGELINA GREGORY Order Number: [id number] Reading MD: Kenneth Osborne Measurements Intervals [place] Rate: 109 P: 31 [place]: 134 QRS: 85 QRSD: 78 T: 27 QT: 337 QTc: 455 Interpretive Statements Sinus tachycardia No previous ECG available for comparison Electronically Signed On 12-24-2024 16:03:03 CDT by Kenneth Osborne Please click the below link to view image of tracing.
--- NOTE | 2024-12-23 12:03 | HMCIMG ---
EXAM: CR Chest, 1 View. CLINICAL HISTORY: CHEST PAIN COMPARISON: 04/14/2022 chest single view FINDINGS: Stable electronic device projects over the left heart border. LUNGS: There is no mass, infiltrate, or acute pulmonary abnormality. PLEURAL SPACES: No pleural effusion or pneumothorax. MEDIASTINUM: The cardiomediastinal silhouette is within normal limits. BONES: No aggressive appearing osseous lesion seen. IMPRESSION: No acute cardiopulmonary pathology is evident. /[place]
[2024-12-23 12:04] LABS: IMMATURE GRANULOCYTE ABSOLUTE 0.02 K/uL (0-1); NUCLEATED RED BLOOD CELLS 0.0 % (0.0-0.19); PLATELET COUNT (AUTO) 291 K/uL (130-400); RED BLOOD CELL COUNT(AUTO) 5.98 MIL/uL (4.00-5.50); RED CELL DISTRIBUTION WIDTH 12.2 % (11.0-15.5); WHITE BLOOD COUNT (AUTO) 10.2 K/uL (4.8-10.8)
[2024-12-23] MEDS: FAMOTIDINE 20MG TAB PO ONE (12:07)
[2024-12-23] MEDS: 0.9%NACL 1000ML 1,000 ML IV ONE (12:08)
[2024-12-23 12:11] LABS: CREATININE 0.7 mg/dL (0.5-1.0); GLOMERULAR FILTR. RATE CALC 110.0 mL/min (>90); GLUCOSE,RANDOM 205.0 mg/dL (70-105); SODIUM SERUM 139.0 mmol/L (136-145); UREA NITROGEN, BLOOD 12.0 mg/dL (7-18)
[2024-12-23 12:22] VITALS: BP 145/99; PULSE 108; RESP 18; TEMP 99.7; O2SAT 99
[2024-12-23] MEDS ORDERED: SUCR1TAB28 PO (13:05)
[2024-12-23] MEDS ORDERED: OMEP40CA21 PO (13:05)
[2024-12-23] MEDS: LIDOCAINE HCL 2% VISCOUS 15 ML UDCUP PO ONE (13:15)
[2024-12-23] MEDS: DICYCLOMINE HCL 10 MG/5 ML ML PO ONE (13:15)
[2024-12-23] MEDS: MAG/ALUM/SIMETH 30 ML UDCUP PO ONE (13:15)
--- NOTE | 2024-12-23 13:25 | NUR ---
PT AAOX4 STABLE NO DISTRESS, VITALS WNL NO C/O PAIN NOW. PT GIVEN INSTRUCTIONS FOR HOME VERBALIZED UNDERSTANDING. IV REMOVED CATHETER INTACT. PT DRIVEN HOME BY PARTNER.
== END 2024-12-23 13:26 | disposition home or self-care (01) ==
LOC: EDH 11:15
DX: K29.00 Acute gastritis without bleeding (principal); R74.8 Abnormal levels of other serum enzymes; E11.65 Type 2 diabetes mellitus with hyperglycemia; E78.00 Pure hypercholesterolemia, unspecified; Z88.2 Allergy status to sulfonamides; Z90.49 Acquired absence of other specified parts of digestive tract; Z90.721 Acquired absence of ovaries, unilateral
CPT/HCPCS: 99284; 96374; 71045; 96361; 84484; 80048; 83690; 85025; 36415; 93005; J7030; J2405